=== PATIENT | female | born 1985 | race Caucasian/White ===

== ENCOUNTER 2017-04-03 18:37 | Emergency (ER) | payer BC ==
[~2017-04-03] VITALS: Ht 170.2 cm; Wt 68.2 kg
[~2017-04-03 18:37] MED LIST: IMITREX50 MG PO; LO LOESTRIN FE1 TAB PO; PRILOSEC 20MG20 MG PO; PROBIOTIC-MAJOR PO
[2017-04-03 18:42] VITALS: TEMP 98.8
[2017-04-03 19:42] LABS: PH 5 (5-8); SQUAMOUS EPITHELIAL 0-2 /hpf; URINE APPEARANCE Clear; URINE BACTERIA Rare /hpf; URINE BILIRUBIN Negative (NEGATIVE); URINE BLOOD Negative (NEGATIVE); URINE COLOR Straw; URINE GLUCOSE Negative (NEGATIVE); URINE KETONE Negative (NEGATIVE); URINE RBC 0-2 /hpf; URINE UROBILINOGEN Negative (NEGATIVE); URINE WBC 0-2 /hpf
[2017-04-03] MEDS ORDERED: FLEXERIL 1010 MG/TAB PO (20:35)
[2017-04-03 21:00] VITALS: BP 119/83; PULSE 89
[2017-04-03] MEDS ORDERED: PREDNISONE20 MG PO (21:06)
== END 2017-04-03 21:15 | disposition home or self-care (01) ==
LOC: COL.ER 18:37
PROVIDERS: Nurse Practitioner
DX: M54.16 Radiculopathy, lumbar region (principal); G43.909 Migraine, unspecified, not intractable, without status migrainosus; J45.909 Unspecified asthma, uncomplicated
CPT/HCPCS: J1885; J2360; J7512

== ENCOUNTER → 2017-04-04 | Outpatient (CLI) | payer BC ==
[~2017-04-04] MED LIST changes: +FLEXERIL 1010 MG/TAB PO; +PREDNISONE20 MG PO
== END ==
LOC: COL.RAD 13:15
DX: M51.17 Intervertebral disc disorders with radiculopathy, lumbosacral region (principal); M48.07 Spinal stenosis, lumbosacral region

== ENCOUNTER → 2017-05-08 | Outpatient (REF) | LOC: WSOH 15:52 | DX: Z02.89 Encounter for other administrative examinations (principal) ==

== ENCOUNTER → 2017-11-19 | Outpatient (CLI) | payer BC | LOC: COL.RAD 08:14 | DX: M51.26 Other intervertebral disc displacement, lumbar region (principal); M48.061 Spinal stenosis, lumbar region without neurogenic claudication ==